=== PATIENT | male | born 1950 | race Hispanic/Latino ===

== ENCOUNTER → 2020-09-12 | Day surgery (SDC) | payer MEDICARE ==
[2020-09-12] VITALS (23 sets, daily range): BP systolic 112–172; BP diastolic 44–94
[~2020-09-12] MED LIST: ACETAMINOPHEN325 M1 PO; ASPIRIN EC81 MG PO; ATORVASTATIN CA10 MG PO; BACTRIM DS TAB1 EACH PO; BUMETANIDE1 MG PO; CARVEDILOL12.5 MG PO; CELLCEPT250 MG PO; CLOPIDOGREL BISULFATE 75 MG TAB ONE; CLOPIDOGREL75 MG PO; COREG6.25 MG PO; FENTANYL CITRATE/PF 100MCG/2 ML INJ ONE; FERROUS SULFAT325 MG PO; FUROSEMIDE40 MG PO; GENERLAC10 GM/15 M PO; GLIPIZIDE10 MG PO; HEPARIN SOD/SOD CHLORIDE 2,000 ML ONE; HUMALOG MI100 UNIT/4 SQ; HUMALOG MI100 UNITS/ SQ; Hydrocodone/Apap 5MG-325MG PO; IOPAMIDOL 300MG/ML 100 ML INFUS..BTL IV ONE; LANTUS U; LANTUS100 UNIT/1 SQ; LEVEMIR FL100 UNIT/1 SC; LEVOTHYROXINE75 MCG PO; LIDOCAINE HCL 2% LOCAL 20 ML VIAL ONE; MIDAZOLAM HCL 2 MG/2 ML VIAL ONE; MULTI-VITAMIN1 EACH PO; NITRO-BID1 GM TOP; PANTOPRAZOLE SO40 MG PO; PLAVIX75 MG PO; POTASSIUM PO; PREDNISONE5 MG PO; PROGRAF0.5 MG PO; PROGRAF1 MG PO; PROTAMINE SULFATE 10 MG/ML 5 ML VIAL ONE; SODIUM CHLORIDE 0.9% 1000ML 1,000 ML ONE; SODIUM CHLORIDE 0.9% 50ML 50 ML ONE; SPIRONOLACTONE50 MG PO; STOOL SOFTENER1 EAC2 PO; TYLENOL # 31 EA PO; VERAPAMIL HCL 2.5 MG/ML 2 ML VIAL ONE; XIFAXAN550 MG PO
== END | disposition home or self-care (01) ==
LOC: CATH LAB 09:31
PROVIDERS: ATTEND Internal Medicine Cardiovascular Disease
DX: I70.212 Atherosclerosis of native arteries of extremities with intermittent claudication, left leg (principal); Z89.612 Acquired absence of left leg above knee; I10 Essential (primary) hypertension; E78.5 Hyperlipidemia, unspecified; E13.8 Other specified diabetes mellitus with unspecified complications; Z01.812 Encounter for preprocedural laboratory examination; Z20.822 Contact with and (suspected) exposure to COVID-19; Z79.02 Long term (current) use of antithrombotics/antiplatelets; Z79.82 Long term (current) use of aspirin; Z79.4 Long term (current) use of insulin
CPT/HCPCS: 36415 ×2; 37225; 37229; 75625; 75710; 80053; 82948; 85025; 85610; C1724; C1766; C1769 ×4; C1887 ×3; C2623; J2001; J2250; J2720; J3010; J7030; Q9967; U0002; 36247; 37224; 37228; 99152; 99153

== ENCOUNTER 2020-09-17 16:22 | Inpatient (IN) | payer MEDICARE ==
[~2020-09-17] VITALS: Ht 167.6 cm; Wt 70.3 kg
[~2020-09-17 16:22] MED LIST changes: -ACETAMINOPHEN325 M1 PO; -CLOPIDOGREL BISULFATE 75 MG TAB ONE; -FENTANYL CITRATE/PF 100MCG/2 ML INJ ONE; -HEPARIN SOD/SOD CHLORIDE 2,000 ML ONE; -Hydrocodone/Apap 5MG-325MG PO; -IOPAMIDOL 300MG/ML 100 ML INFUS..BTL IV ONE; -LIDOCAINE HCL 2% LOCAL 20 ML VIAL ONE; -MIDAZOLAM HCL 2 MG/2 ML VIAL ONE; -NITRO-BID1 GM TOP; -PROTAMINE SULFATE 10 MG/ML 5 ML VIAL ONE; -SODIUM CHLORIDE 0.9% 1000ML 1,000 ML ONE; -SODIUM CHLORIDE 0.9% 50ML 50 ML ONE; -STOOL SOFTENER1 EAC2 PO; -TYLENOL # 31 EA PO; -VERAPAMIL HCL 2.5 MG/ML 2 ML VIAL ONE
[2020-09-17 16:56] LABS: BASOPHILS % 0.4 % (0.0-1.0); EOSINOPHILS # (AUTO) 0.1 (0.0-0.4); HEMATOCRIT 30.2 % (38.2-49.6); HEMOGLOBIN 10.5 g/dL (14.0-18.0); LYMPHOCYTES # (AUTO) 1.2 (1.0-3.2); LYMPHOCYTES % 45.3 % (18.0-39.1); MEAN CORPUSCULAR HEMOGLOBIN 29.7 pg (28-32); MEAN CORPUSCULAR HGB CONC 34.8 g/dL (31-35); MEAN CORPUSCULAR VOLUME 85.6 fL (81-99); MONOCYTES # (AUTO) 0.5 (0.2-0.8); MONOCYTES % 18.2 % (4.4-11.3); NEUTROPHILS # (AUTO) 0.9 (2.1-6.9); NEUTROPHILS % 31.7 % (38.7-80.0); PLATELET COUNT 97 x10e3/uL (140-360); RED BLOOD COUNT 3.53 x10e6/uL (4.3-5.7); RED CELL DISTRIBUTION WIDTH 13.3 % (11.7-14.4)
[2020-09-17 17:06] LABS: INR 1.04; PROTHROMBIN TIME 14.2 seconds (11.9-14.5)
[2020-09-17 17:07] LABS: PARTIAL THROMBOPLASTIN TIME 30.2 seconds (23.8-35.5)
[2020-09-17 17:16] LABS: ALANINE AMINOTRANSFERASE 12 IU/L (0-55); ALBUMIN 3.8 g/dL (3.5-5.0); ALKALINE PHOSPHATASE 61 IU/L (40-150); ANION GAP 14.3 mmol/L (8-16); BLOOD UREA NITROGEN 27 mg/dL (7-26); BUN/CREATININE RATIO 25 (6-25); CALCIUM 8.9 mg/dL (8.4-10.2); CARBON DIOXIDE 27 mmol/L (22-29); CHLORIDE 102 mmol/L (98-107); EST GLOMERULAR FILTRATION RATE > 60 ML/MIN (60-); GLUCOSE 154 mg/dL (74-118); POTASSIUM 4.3 mmol/L (3.5-5.1); SODIUM 139 mmol/L (136-145)
[2020-09-17] MEDS ORDERED: HEPARIN SOD (PORCINE) 5,000 UNIT/ML VIAL IV ONE (17:30)
[2020-09-17] MEDS ORDERED: HEPARIN 25,000 UNIT 1,200 UNIT in DEXTROSE 5% 250ML 250 ML IV SCH (17:30)
[2020-09-17] MEDS ORDERED: DEXTROSE 50% SYRINGE 50 ML IV PRN (17:45)
[2020-09-17] MEDS ORDERED: MORPHINE SULFATE INJ 2 MG/ML SYR IV PRN (17:45)
[2020-09-17] MEDS ORDERED: SODIUM CHLORIDE FLUSH 10 ML SYR INJ PRN (17:45)
[2020-09-17] MEDS ORDERED: ONDANSETRON HCL INJ 2MG/ML 2ML 2 MG/ML VIAL IV PRN (17:45)
[2020-09-17] MEDS ORDERED: HEPARIN 25,000 UNIT DRIP IV ONE (17:52)
[2020-09-17] MEDS: NITROGLYCERIN 2% OINT 1 GM PKT TOP SCH (18:00)
[2020-09-17] MEDS ORDERED: HYDRALAZINE HCL 20 MG/ML VIAL IV PRN (20:45)
[2020-09-17 21:30] VITALS: BP 187/68
[2020-09-17] MEDS ORDERED: STOOL SOFTENER1 EAC2 PO (21:49)
[2020-09-17] MEDS: MORPHINE SULFATE INJ 4 MG/ML INJ 1ML IV PRN (22:05)
[2020-09-17] MEDS: INSULIN REGULAR, HUMAN 100 UNIT/1 ML 3ML VIAL SQ SCH (22:15)
[2020-09-18] VITALS (9 sets, daily range): BP systolic 139–186; BP diastolic 60–94
[2020-09-18] MEDS: NITROGLYCERIN 2% OINT 1 GM PKT TOP SCH ×4 (00:10→18:00)
[2020-09-18] MEDS: MORPHINE SULFATE INJ 4 MG/ML INJ 1ML IV PRN ×2 (02:10→06:30)
[2020-09-18 07:21] LABS: BASOPHILS % 0.3 % (0.0-1.0); EOSINOPHILS # (AUTO) 0.1 (0.0-0.4); EOSINOPHILS % 4.3 % (0.0-6.0); HEMATOCRIT 29.2 % (38.2-49.6); HEMOGLOBIN 10.1 g/dL (14.0-18.0); LYMPHOCYTES # (AUTO) 1.3 (1.0-3.2); LYMPHOCYTES % 42.8 % (18.0-39.1); MEAN CORPUSCULAR HEMOGLOBIN 29.8 pg (28-32); MEAN CORPUSCULAR HGB CONC 34.6 g/dL (31-35); MEAN CORPUSCULAR VOLUME 86.1 fL (81-99); MONOCYTES # (AUTO) 0.5 (0.2-0.8); MONOCYTES % 15.7 % (4.4-11.3); NEUTROPHILS # (AUTO) 1.1 (2.1-6.9); NEUTROPHILS % 36.6 % (38.7-80.0); PLATELET COUNT 85 x10e3/uL (140-360); RED BLOOD COUNT 3.39 x10e6/uL (4.3-5.7); RED CELL DISTRIBUTION WIDTH 13.3 % (11.7-14.4)
[2020-09-18] MEDS: INSULIN REGULAR, HUMAN 100 UNIT/1 ML 3ML VIAL SQ SCH ×4 (07:30→21:00)
[2020-09-18 07:45] LABS: ALANINE AMINOTRANSFERASE 18 IU/L (0-55); ALBUMIN 3.3 g/dL (3.5-5.0); ALBUMIN/GLOBULIN RATIO 0.9 (0.8-2.0); ALKALINE PHOSPHATASE 67 IU/L (40-150); ANION GAP 10.3 mmol/L (8-16); BLOOD UREA NITROGEN 21 mg/dL (7-26); BUN/CREATININE RATIO 24 (6-25); CALCIUM 8.4 mg/dL (8.4-10.2); CARBON DIOXIDE 28 mmol/L (22-29); CHLORIDE 105 mmol/L (98-107); CREATININE, SERUM 0.89 mg/dL (0.72-1.25); EST GLOMERULAR FILTRATION RATE > 60 ML/MIN (60-); GLUCOSE 118 mg/dL (74-118); POTASSIUM 4.3 mmol/L (3.5-5.1); SODIUM 139 mmol/L (136-145)
[2020-09-18] MEDS ORDERED: HYDRALAZINE HCL 20 MG/ML VIAL IV PRN (11:30)
[2020-09-18] MEDS ORDERED: HYDROCODONE/APAP 5MG-325MG TAB PO PRN (11:30)
[2020-09-18] MEDS ORDERED: ACETAMINOPHEN 325 MG TAB PO PRN (11:30)
[2020-09-18] MEDS ORDERED: MORPHINE SULFATE INJ 2 MG/ML SYR IV PRN (11:45)
[2020-09-18] MEDS ORDERED: FENTANYL CITRATE/PF 100MCG/2 ML INJ ONE ×2 (13:49→16:20)
[2020-09-18] MEDS ORDERED: MIDAZOLAM HCL 2 MG/2 ML VIAL ONE ×3 (13:49→16:19)
[2020-09-18] MEDS ORDERED: HEPARIN SOD/SOD CHLORIDE 2,000 ML ONE (13:49)
[2020-09-18] MEDS ORDERED: LIDOCAINE HCL 2% LOCAL 20 ML VIAL ONE (13:49)
[2020-09-18] MEDS ORDERED: IOPAMIDOL 300MG/ML 100 ML INFUS..BTL IV ONE (13:50)
[2020-09-18] MEDS ORDERED: SODIUM CHLORIDE 0.9% 1000ML 1,000 ML ONE ×2 (13:50→22:04)
[2020-09-18] MEDS ORDERED: MORPHINE SULFATE INJ 4 MG/ML INJ 1ML IV PRN (14:00)
[2020-09-18] MEDS ORDERED: HEPARIN SOD (PORCINE) 1000 UNIT/ML 30ML ONE (14:54)
[2020-09-18] MEDS: FAMOTIDINE 20 MG TAB PO SCH (16:30)
[2020-09-18] MEDS ORDERED: CLOPIDOGREL BISULFATE 75 MG TAB ONE (16:56)
[2020-09-18] MEDS ORDERED: ASPIRIN 325 MG TAB ONE (16:56)
[2020-09-18] MEDS: CARVEDILOL 12.5 MG TAB PO SCH (17:00)
[2020-09-18] MEDS: TACROLIMUS 0.5 MG CAP PO SCH (17:00)
[2020-09-19] VITALS: BP 161/60
[2020-09-19] MEDS: NITROGLYCERIN 2% OINT 1 GM PKT TOP SCH ×4 (00:04→12:00)
[2020-09-19 04:00] VITALS: BP 124/67
[2020-09-19 05:50] LABS: BASOPHILS % 0.3 % (0.0-1.0); EOSINOPHILS # (AUTO) 0.1 (0.0-0.4); EOSINOPHILS % 1.7 % (0.0-6.0); HEMATOCRIT 26.9 % (38.2-49.6); HEMOGLOBIN 9.1 g/dL (14.0-18.0); LYMPHOCYTES % 27.1 % (18.0-39.1); MEAN CORPUSCULAR HEMOGLOBIN 29.4 pg (28-32); MEAN CORPUSCULAR HGB CONC 33.8 g/dL (31-35); MEAN CORPUSCULAR VOLUME 87.1 fL (81-99); MONOCYTES # (AUTO) 0.4 (0.2-0.8); NEUTROPHILS # (AUTO) 2.1 (2.1-6.9); NEUTROPHILS % 58.6 % (38.7-80.0); PLATELET COUNT 91 x10e3/uL (140-360); RED BLOOD COUNT 3.09 x10e6/uL (4.3-5.7); RED CELL DISTRIBUTION WIDTH 13.3 % (11.7-14.4)
[2020-09-19] MEDS ORDERED: LEVOTHYROXINE SODIUM 75 MCG TAB PO SCH (06:00)
[2020-09-19 06:13] LABS: ALANINE AMINOTRANSFERASE 14 IU/L (0-55); ALBUMIN 3.1 g/dL (3.5-5.0); ALBUMIN/GLOBULIN RATIO 0.9 (0.8-2.0); ALKALINE PHOSPHATASE 77 IU/L (40-150); ANION GAP 13.1 mmol/L (8-16); BLOOD UREA NITROGEN 21 mg/dL (7-26); BUN/CREATININE RATIO 22 (6-25); CALCIUM 8.4 mg/dL (8.4-10.2); CARBON DIOXIDE 24 mmol/L (22-29); CHLORIDE 103 mmol/L (98-107); CREATININE, SERUM 0.94 mg/dL (0.72-1.25); EST GLOMERULAR FILTRATION RATE > 60 ML/MIN (60-); GLUCOSE 194 mg/dL (74-118); POTASSIUM 4.1 mmol/L (3.5-5.1); SODIUM 136 mmol/L (136-145)
[2020-09-19 06:42] LABS: CHOL/HDL RATIO 5.1 (3.9-4.7); MAGNESIUM 1.5 MG/DL (1.3-2.1); PHOSPHORUS 2.9 MG/DL (2.3-4.7)
[2020-09-19 07:21] LABS: THYROID STIMULATING HORMONE 3.814 uIU/mL (0.350-4.940)
[2020-09-19] MEDS: FAMOTIDINE 20 MG TAB PO SCH ×2 (07:30→15:47)
[2020-09-19] MEDS: INSULIN REGULAR, HUMAN 100 UNIT/1 ML 3ML VIAL SQ SCH ×3 (07:30→16:30)
[2020-09-19] MEDS ORDERED: MAGNESIUM SULFATE 2GM/50ML 50 ML IV ONE (08:00)
[2020-09-19 08:45] VITALS: BP 124/67
[2020-09-19 08:50] VITALS: BP 138/52
[2020-09-19] MEDS ORDERED: ASPIRIN 81 MG ENTERIC COATED PO SCH (09:00)
[2020-09-19] MEDS ORDERED: ATORVASTATIN 10 MG TAB PO SCH ×2 (09:00→21:00)
[2020-09-19] MEDS ORDERED: CLOPIDOGREL BISULFATE 75 MG TAB PO SCH (09:00)
[2020-09-19] MEDS ORDERED: SENNA-S TABLET PO SCH (09:00)
[2020-09-19] MEDS ORDERED: BUMETANIDE 1 MG TAB PO SCH (09:00)
[2020-09-19] MEDS: CARVEDILOL 12.5 MG TAB PO SCH ×2 (09:00→16:49)
[2020-09-19] MEDS: TACROLIMUS 0.5 MG CAP PO SCH ×2 (09:00→15:47)
[2020-09-19] MEDS ORDERED: MULTIVITAMINS/MINERALS TAB PO SCH (09:00)
[2020-09-19 12:40] VITALS: BP 144/62
[2020-09-19] MEDS ORDERED: Hydrocodone/Apap 5MG-325MG PO (13:56)
[2020-09-19] MEDS ORDERED: ACETAMINOPHEN325 M1 PO (13:56)
[2020-09-19] MEDS ORDERED: NITRO-BID1 GM TOP (13:56)
[2020-09-19] MEDS ORDERED: TYLENOL # 31 EA PO (14:01)
[2020-09-19] MEDS ORDERED: ONDANSETRON HCL 4 MG ORAL DISINTEGRATING TAB PO PRN (16:15)
== END 2020-09-19 16:42 | disposition home or self-care (01) | DRG 253 ==
LOC: ER 17:03 → ERHOLD 17:45 → MED/SURG2 21:21
PROVIDERS: ADMIT Internal Medicine; ATTEND Internal Medicine
PROC: 047Q3Z1 Dilation of Left Anterior Tibial Artery using Drug-Coated Balloon, Percutaneous Approach (ICD-10-PCS; principal; 2020-09-18)
PROC: 047S3Z1 Dilation of Left Posterior Tibial Artery using Drug-Coated Balloon, Percutaneous Approach (ICD-10-PCS; 2020-09-18)
PROC: B41G1ZZ Fluoroscopy of Left Lower Extremity Arteries using Low Osmolar Contrast (ICD-10-PCS; 2020-09-18)
DX: E11.51 Type 2 diabetes mellitus with diabetic peripheral angiopathy without gangrene (principal); Z94.4 Liver transplant status; I10 Essential (primary) hypertension; I70.222 Atherosclerosis of native arteries of extremities with rest pain, left leg; Z89.511 Acquired absence of right leg below knee; I25.10 Atherosclerotic heart disease of native coronary artery without angina pectoris; Z95.1 Presence of aortocoronary bypass graft; E03.9 Hypothyroidism, unspecified; D69.59 Other secondary thrombocytopenia; E83.42 Hypomagnesemia; E11.9 Type 2 diabetes mellitus without complications; Z20.822 Contact with and (suspected) exposure to COVID-19; T45.1X5A Adverse effect of antineoplastic and immunosuppressive drugs, initial encounter
CPT/HCPCS: 36415; 37228; 75710; 80053; 80061; 82948; 83036; 83735; 84100; 84443; 84484; 85025; 85610; 85730; 99152; 99153; 99284; C1725; C1760; C1766; C1769; C1887; J0360; J1644; J1817; J2001; J2250; J2270; J3010; J3475; J7030; Q9967; U0002